=== PATIENT | female | born 1950 | race Caucasian/White ===

== ENCOUNTER 2020-03-10 14:43 | Emergency (ER) | payer MEDICARE, BC ==
[~2020-03-10] VITALS: Ht 167.6 cm; Wt 86.6 kg
[2020-03-10] MEDS ORDERED: TOPROL XL50 MG PO (14:55)
[2020-03-10 16:46] VITALS: BP 120/85
== END 2020-03-10 16:46 | disposition home or self-care (01) ==
LOC: M.ERS 14:43
DX: M25.532 Pain in left wrist (principal)